=== PATIENT | female | born 1995 | race Caucasian/White ===

== ENCOUNTER 2016-11-20 15:26 | Emergency (ER) | payer OTHER ==
[2016-11-20 16:12] VITALS: BP 131/81
--- NOTE | 2016-11-20 17:04 | UC ---
Complaint Female HPI - HPI Summary HPI Summary: 21 year old female with UTI Sx. c/o having burning with urination since yesterday. Also states urinary frequency since today. Denies fever, abd pain or pressure or noticing any blood in urine. [ End ] - History Of Current Complaint Chief Complaint: UCGU Stated Complaint: PERSONAL Time Seen by Provider: 11/20/16 16:59 Hx Obtained From: Patient Hx Last Menstrual Period: 11/06/16 Onset/Duration: Sudden Onset Timing: Constant Associated Signs And Symptoms: Positive: Negative - Allergies/Home Medications Allergies/Adverse Reactions: Allergies Allergy/AdvReac Type Severity Reaction Status Date / Time No Known Allergies Allergy Verified 11/20/16 16:11 Home Medications: Home Medications PARoxetine HCL TAB* [Paxil TAB*] 20 mg PO DAILY 11/20/16 [History Confirmed ] PMH/Surg Hx/FS Hx/Imm Hx Previously Healthy: Yes - Surgical History Surgical History: None - Family History Known Family History: Positive: Hypertension - Social History Occupation: Employed Full-time - [employer] Lives: With Family Alcohol Use: Rare Substance Use Type: None Smoking Status (MU): Never Smoked Tobacco Review of Systems Genitourinary: Dysuria, Frequency, Urgency All Other Systems Reviewed And Are Negative: Yes Physical Exam Triage Information Reviewed: Yes Appearance: Well-Appearing, No Pain Distress, Well-Nourished Vital Signs: Initial Vital Signs Temp 97.8 F 11/20/16 16:04 Pulse 89 11/20/16 16:04 Resp 14 11/20/16 16:04 BP 131/81 11/20/16 16:04 Pulse Ox 100 11/20/16 16:04 Vital Signs Reviewed: Yes Eye Exam: Normal ENT Exam: Normal Dental Exam: Normal Neck exam: Normal Neck: Positive: 1 Respiratory Exam: Normal Cardiovascular Exam: Normal Abdominal Exam: Normal Musculoskeletal Exam: Normal Neurological Exam: Normal Psychological Exam: Normal Skin Exam: Normal Complaint Female Dx - Course Course Of Treatment: U/A vague -- with Sx empiracally start meds, can stop if neg cx, RTO if any concerns. Discussed Se. - Differential Dx/Diagnosis Differential Diagnosis/HQI/PQRI: Ureteral Stone, Urinary Tract Infection Provider Diagnoses: UTI / dysuria Discharge - Discharge Plan Condition: Good Disposition: HOME Prescriptions: Sulfamethox/Trimethoprim DS* [Bactrim DS 800/160 TAB*] 1 tab PO BID #6 tab Patient Education Materials: Urinary Tract Infection in Women (ED) Referrals: JONG Smith [Primary Care Provider] - 4 Days
== END 2016-11-20 17:17 | disposition home or self-care (01) ==
LOC: UCCORT 15:26
DX: N39.0 Urinary tract infection, site not specified (principal); R30.0 Dysuria
CPT/HCPCS: 81003; 87077; 87086; 99212; G0463